=== PATIENT | male | born 1960 | race Caucasian/White ===

== ENCOUNTER 2017-06-06 11:20 | Emergency (ER) | payer OTHER ==
[~2017-06-06] VITALS: Ht 190.5 cm; Wt 86.6 kg
--- NOTE | ~2017-06-06 | CR106 ---
[facility] A Service of [facility] RADIOLOGY TEXT RESULTS PATIENT: ABRAM FELIX LOCATION: [facility] : 62 UNIT #: [id number] AGE: [address]: Lucy Castellanos APRN SEX: M ORDER DR: [id number] [facility] [address] [place], [place] [address] [id number] E MR#: [id number] Acc #: [id number] NAME: ABRAM FELIX : 1960 SEX: M STUDY DATE/TIME: 06/06/2017 12:15 UNIT: [facility] ROOM: STUDY DESCRIPTION: CR Femur 2 Views Lt Attending Physician: Lucy Castellanos A.P.R.N. Ordering Physician: Ed Charles Rocha M.D. Primary Care Physician: Bel Ellison M.D. MEDICAL IMAGING REPORT This report is preliminary unless electronic signature is present EXAM 2 views left femur. Date: 06/06/2017. HISTORY Left hip and femur pain after falling down steps today. COMPARISON None. FINDINGS No acute left femur fracture is seen. No knee or hip dislocation is identified. No significant knee or hip joint osteoarthritic changes are evident. No definite joint effusion. No unexpected retained radiopaque foreign body is identified. Incidental note is made of vasectomy clips. IMPRESSION Normal left femur. Dictated by... Mel Maurer M.D. THIS IS AN ELECTRONICALLY VERIFIED REPORT Mel Maurer M.D. at 06/07/2017 7:08 AM [facility]/neymar TD: 06/06/2017 16:11 JOB #: [id number] MEDICAL IMAGING REPORT Page 1 of 1 COPY
--- NOTE | ~2017-06-06 | CR230 ---
[facility] A Service of [facility] RADIOLOGY TEXT RESULTS PATIENT: ABRAM FELIX LOCATION: [place] : 62 UNIT #: [id number] AGE: [address]: Lucy Castellanos APRN SEX: M ORDER DR: [id number] [facility] [address] [place], [place] [address] [id number] E MR#: [id number] Acc #: [id number] NAME: ABRAM FELIX : 1960 SEX: M STUDY DATE/TIME: 06/06/2017 12:17 UNIT: [facility] ROOM: STUDY DESCRIPTION: CR Shoulder Min 2 View Rt Attending Physician: Lucy Castellanos A.P.R.N. Ordering Physician: Davie Rocha M.D. Primary Care Physician: Bel Ellison M.D. MEDICAL IMAGING REPORT This report is preliminary unless electronic signature is present EXAM 3 views right shoulder DATE 06/06/2017 HISTORY Right shoulder pain after falling down steps today. COMPARISON None FINDINGS No fracture, joint dislocation or significant osteoarthritic changes identified. There is a well-corticated chronic-appearing calcification at the lateral margin of the right humeral head measuring 5 mm, likely representing changes of chronic calcific tendinosis. No acromioclavicular or coracoclavicular separation is seen. Imaged right lung apex is clear. IMPRESSION Findings suggesting mild calcific tendinosis of the right shoulder. No acute right shoulder abnormalities. Dictated by... Mel Maurer M.D. THIS IS AN ELECTRONICALLY VERIFIED REPORT Mel Maurer M.D. at 06/07/2017 7:08 AM [facility]/to TD: 06/06/2017 21:07 JOB #: [id number] [facility] A Service of [facility] RADIOLOGY TEXT RESULTS PATIENT: ABRAM FELIX LOCATION: [place] : 62 UNIT #: [id number] AGE: [address]: Lucy Castellanos APRN SEX: M ORDER DR: MEDICAL IMAGING REPORT Page 1 of 1 COPY
--- NOTE | ~2017-06-06 | CR181 ---
[facility] A Service of [facility] RADIOLOGY TEXT RESULTS PATIENT: ABRAM FELIX LOCATION: [facility] : 62 UNIT #: [id number] AGE: [address]: Lucy Castellanos APRN SEX: M ORDER DR: [id number] [id number] [place], [place] [address] [id number] E MR#: [id number] Acc #: [id number] NAME: ABRAM FELIX : 1960 SEX: M STUDY DATE/TIME: 06/06/2017 12:13 UNIT: [facility] ROOM: STUDY DESCRIPTION: CR Lumbar Spine 2 or 3 Views Attending Physician: Lucy Castellanos A.P.R.N. Ordering Physician: [facility] Primary Care Physician: Bel Ellison M.D. MEDICAL IMAGING REPORT This report is preliminary unless electronic signature is present EXAM 3 views of the lumbar spine 06/06/2017 HISTORY 56-year-old male, low back pain after falling down the steps today. COMPARISON None. FINDINGS No acute lumbar spine fracture or subluxation is seen. Anterior marginal osteophytes are present at L2, L3 and L4. Disc space height appears preserved. No osteolytic or osteoblastic lesions are identified. No significant facet arthropathy is appreciated. No sacroiliac joint diastasis. IMPRESSION Marginal osteophyte formation at L2, L3 L4. No acute lumbar spine findings. Dictated by... Mel Maurer M.D. THIS IS AN ELECTRONICALLY VERIFIED REPORT Mel Maurer M.D. at 06/07/2017 7:08 AM [facility]/pcl TD: 06/06/2017 20:58 JOB #: [id number] MEDICAL IMAGING REPORT [facility] A Service of [facility] RADIOLOGY TEXT RESULTS PATIENT: ABRAM FELIX LOCATION: [facility] : 62 UNIT #: [id number] AGE: [address]: Lucy Castellanos APRN SEX: M ORDER DR: Page 1 of 1 COPY
--- NOTE | ~2017-06-06 | CR150 ---
[facility] A Service of [facility] RADIOLOGY TEXT RESULTS PATIENT: ABRAM FELIX LOCATION: [facility] : 62 UNIT #: [id number] AGE: [address]: Lucy Castellanos APRN SEX: M ORDER DR: [id number] [facility] [address] [place], [place] [address] [id number] E MR#: [id number] Acc #: [id number] NAME: ABRAM FELIX : 1960 SEX: M STUDY DATE/TIME: 06/06/2017 12:14 UNIT: [facility] ROOM: STUDY DESCRIPTION: CR Hip Min 2 Views Lt Attending Physician: Lucy Castellanos A.P.R.N. Ordering Physician: Ed Doctor [id number] [facility] Primary Care Physician: Bel Ellison M.D. MEDICAL IMAGING REPORT This report is preliminary unless electronic signature is present EXAM AP pelvis with frog view left hip DATE 06/06/2017 HISTORY Low back pain and left hip and femur pain after falling down steps today. COMPARISON None FINDINGS No pelvic fracture, hip fracture or hip dislocation is seen. Hip joint spaces appear well maintained without significant osteoarthritic change. No sacroiliac joint consensus diastasis is seen. IMPRESSION Normal pelvis and left hip. Dictated by... Mel Maurer M.D. THIS IS AN ELECTRONICALLY VERIFIED REPORT Mel Maurer M.D. at 06/07/2017 7:[address] [facility]/to TD: 06/06/2017 21:02 JOB #: [id number] MEDICAL IMAGING REPORT Page 1 of 1 COPY
== END 2017-06-06 14:04 | disposition home or self-care (01) ==
LOC: CED 11:20 → CFTX 11:20
DX: S46.011A Strain of muscle(s) and tendon(s) of the rotator cuff of right shoulder, initial encounter (principal); S39.011A Strain of muscle, fascia and tendon of abdomen, initial encounter; E11.9 Type 2 diabetes mellitus without complications; I10 Essential (primary) hypertension; F17.200 Nicotine dependence, unspecified, uncomplicated; Z88.1 Allergy status to other antibiotic agents; Z88.8 Allergy status to other drugs, medicaments and biological substances; W01.0XXA Fall on same level from slipping, tripping and stumbling without subsequent striking against object, initial encounter; Y92.69 Other specified industrial and construction area as the place of occurrence of the external cause
CPT/HCPCS: 72100; 73030; 73502; 73552; 82947; 96372; 99284; J1885